=== PATIENT | male | born 1935 | race Caucasian/White ===

== ENCOUNTER 2020-08-20 13:20 | Emergency (ER) | payer OTHER, MEDICARE ==
[~2020-08-20 13:20] MED LIST: AMIODARONE HCL200 MG PO; ASPIRIN EC81 MG PO; COLACE 100MG C100 MG PO; DULERA 100 MCG8.8 GM INH; ELIQUIS 2.5 MG2.5 MG PO; FLOMAX0.4 MG PO; IPRAT-ALBUT 0.5-3 ML NEB; MINERAL OIL PO; NORCO 5-325 TA1 EACH PO; PERCOCET 5/325 T1 EA PO; THERAGRAN M TAB1 EA PO; TYLENOL 325MG325 MG PO; ZOFRAN4 MG PO
== END 2020-08-20 16:10 | disposition home or self-care (01) ==
LOC: ER1 13:20
DX: R07.9 Chest pain, unspecified (principal); V49.40XA Driver injured in collision with unspecified motor vehicles in traffic accident, initial encounter; Y92.410 Unspecified street and highway as the place of occurrence of the external cause
CPT/HCPCS: 71046; 99285

== ENCOUNTER 2021-09-18 17:36 | Inpatient (IN) | payer MEDICARE, MEDICAID ==
[~2021-09-18] VITALS: Ht 182.9 cm; Wt 77.6 kg
[2021-09-18 18:01] LABS: HEMOGLOBIN 14.5 gm/dl (14.0-17.5); RED BLOOD COUNT 4.64 M/UL (4.20-5.50); WHITE BLOOD COUNT 18.7 K/UL (4.5-11.0)
[2021-09-19 05:03] LABS: RED BLOOD COUNT 4.49 M/UL (4.20-5.50)
[2021-09-19 05:32] LABS: BUN/CREATININE RATIO 27 (0-10)
[2021-09-19] MEDS ORDERED: TYLENOL 8 HOUR650 MG PO (11:23)
[2021-09-19 23:07] LABS: BUN/CREATININE RATIO 26 (0-10)
[2021-09-20 06:38] LABS: HEMOGLOBIN 12.6 gm/dl (14.0-17.5); RED BLOOD COUNT 4.1 M/UL (4.20-5.50)
[2021-09-20 06:59] LABS: BUN/CREATININE RATIO 34 (0-10)
[2021-09-21 07:50] LABS: HEMOGLOBIN 12.6 gm/dl (14.0-17.5); RED BLOOD COUNT 4.2 M/UL (4.20-5.50); WHITE BLOOD COUNT 21.7 K/UL (4.5-11.0)
[2021-09-21 08:10] LABS: BUN/CREATININE RATIO 45 (0-10)
[2021-09-22 02:26] LABS: HEMOGLOBIN 11.5 gm/dl (14.0-17.5)
[2021-09-22 02:27] LABS: RED BLOOD COUNT 3.77 M/UL (4.20-5.50); WHITE BLOOD COUNT 14.5 K/UL (4.5-11.0)
[2021-09-23 03:05] LABS: HEMOGLOBIN 11.3 gm/dl (14.0-17.5); RED BLOOD COUNT 3.65 M/UL (4.20-5.50); WHITE BLOOD COUNT 12.6 K/UL (4.5-11.0)
[2021-09-23 03:52] LABS: BUN/CREATININE RATIO 46 (0-10)
[2021-09-23] MEDS ORDERED: BUDESONIDE0.5 MG/2 M NEB (17:45)
[2021-09-23] MEDS ORDERED: ELIQUIS 2.5 MG2.5 MG PO (17:45)
[2021-09-23] MEDS ORDERED: IPRAT-ALBUT 0.5-3 ML NEB (17:45)
[2021-09-23] MEDS ORDERED: ASPIRIN EC81 MG PO (17:45)
[2021-09-23] MEDS ORDERED: BROVANA15 MCG/2 M NEB (17:45)
[2021-09-23] MEDS ORDERED: THERAGRAN M TAB1 EA PO (17:45)
[2021-09-23] MEDS ORDERED: LOPRESSOR 25 MG25 MG PO (17:45)
[2021-09-23] MEDS ORDERED: COLCHICINE 0.60.6 MG PO (17:45)
[2021-09-23] MEDS ORDERED: FLOMAX 0.4 MG0.4 MG PO (17:45)
[2021-09-23] MEDS ORDERED: CELECOXIB100 MG PO (17:45)
[2021-09-24 02:06] LABS: HEMOGLOBIN 10.8 gm/dl (14.0-17.5); RED BLOOD COUNT 3.55 M/UL (4.20-5.50); WHITE BLOOD COUNT 13.6 K/UL (4.5-11.0)
--- NOTE | 2021-09-24 14:38 | NUR ---
REPORT CALLED TO LOUIE AT [facility]. DURING REPORT I DISCOVERED THAT THERE WAS NO DOCUMENTED BM SINCE 09/18/21. SPOKE TO DR. SALVADOR AND RECIEVED AN ORDER FOR LACTULOSE. WILL CONTINUE TO [employer]IOTR FOR BM AND CONTACT PROVIDER FOR FURTHER ORDERS.
== END 2021-09-24 21:56 | DRG 871 ==
LOC: ER1 17:36 → CDU 20:59 → PROG CARE 20:59
PROVIDERS: Internal Medicine Infectious Disease; ADMIT Internal Medicine
PROC: 3E03329 Introduction of Other Anti-infective into Peripheral Vein, Percutaneous Approach (ICD-10-PCS; principal; 2021-09-18)
PROC: B24BZZZ Ultrasonography of Heart with Aorta (ICD-10-PCS; 2021-09-21)
DX: A41.9 Sepsis, unspecified organism (principal); G93.41 Metabolic encephalopathy; I13.0 Hypertensive heart and chronic kidney disease with heart failure and stage 1 through stage 4 chronic kidney disease, or unspecified chronic kidney disease; N17.9 Acute kidney failure, unspecified; N30.00 Acute cystitis without hematuria; R65.20 Severe sepsis without septic shock; N18.30 Chronic kidney disease, stage 3 unspecified; R53.81 Other malaise; F03.90 Unspecified dementia, unspecified severity, without behavioral disturbance, psychotic disturbance, mood disturbance, and anxiety; M06.9 Rheumatoid arthritis, unspecified; N40.0 Benign prostatic hyperplasia without lower urinary tract symptoms; R13.10 Dysphagia, unspecified; L89.326 Pressure-induced deep tissue damage of left buttock; I48.0 Paroxysmal atrial fibrillation; L89.316 Pressure-induced deep tissue damage of right buttock; J44.9 Chronic obstructive pulmonary disease, unspecified; L89.156 Pressure-induced deep tissue damage of sacral region; M10.9 Gout, unspecified; Z96.619 Presence of unspecified artificial shoulder joint; Z96.649 Presence of unspecified artificial hip joint; Z98.890 Other specified postprocedural states; Z79.899 Other long term (current) drug therapy; Z79.82 Long term (current) use of aspirin
CPT/HCPCS: ECHO; 0240U; 36415; 36600; 70450; 71045; 74230; 80048; 80053; 81001; 82140; 82550; 82553; 82607; 82803; 82962; 83605; 83690; 83735; 83880; 84439; 84443; 84484; 85025; 85027; 85652; 86140; 87040; 92526; 92610; 92611-GN; 93005; 93306; 94640; 94760; 96374; 97110-GP-CQ; 97162; 97165; 97530; 97530-GP-CQ; 99285; J0360; J0696; J1100; J1650; J3370; J3475; J7070; U0002